=== PATIENT | male | born 1950 | race Caucasian/White ===

== ENCOUNTER 2023-08-07 16:00 | Inpatient (IN) ==
[2023-08-07] MEDS ORDERED: IOPAMIDOL 100 ML BOTTLE IV ONE (16:01)
[2023-08-07 16:18] LABS: POC Calcium, Ionized 1.25 (1.16-1.32); POC Creatinine 3.3 (0.6-1.2); POC Potassium 3.8 (3.3-5.1)
[2023-08-07 16:35] LABS: Basophils # (Auto) 0.03 K/mcL (0.00-0.30); Basophils % (Auto) 0.5 % (0.0-2.0); Eosinophils # (Auto) 0.07 K/mcL (0.00-0.70); Eosinophils % (Auto) 1.3 % (0.0-7.0); Hematocrit 28.6 % (40.1-51.0); Hemoglobin 9.3 g/dL (13.7-17.5); Lymphocytes # (Auto) 1.34 K/mcL (1.50-4.80); Lymphocytes % (Auto) 24.5 % (15.5-49.0); Mean Cell Volume 102.5 fL (80.0-100.0); Mean Corpuscular HGB Conc 32.5 g/dL (31.0-36.0); Mean Platelet Volume 9.4 fL (8.8-12.5); Monocytes # (Auto) 0.55 K/mcL (0.10-0.90); Monocytes % (Auto) 10.1 % (1.0-12.0); Neutrophils % (Auto) 62.3 % (38.0-78.0); Platelet Count 140 K/mcL (140-440); RBC 2.79 M/mcL (4.63-6.08); Red Cell Distribution Width 19.5 % (11.5-14.5); WBC 5.5 K/mcL (4.5-11.0)
[2023-08-07 16:45] LABS: POC INR 1.6 (0.8-1.2); POC Pro Time 18.7 (11.9-14.5)
[2023-08-07 16:55] LABS: ALT/SGPT 21 U/L (<40); AST/SGOT 27 U/L (<40); Albumin 3.6 gm/dL (3.2-5.2); Alkaline Phosphatase 111 U/L (39-117); Bilirubin,Direct 0.4 mg/dL (<0.3); Bilirubin,Total 1.1 mg/dL (0.1-1.0); Globulin 2.7 gm/dL (2.2-3.7)
[2023-08-07] MEDS: ASPIRIN 81 MG TAB.CHEW CHEWED ONE (18:58)
[2023-08-07] MEDS ORDERED: ACETAMINOPHEN 325 MG TABLET PO PRN (19:47)
[2023-08-07] MEDS ORDERED: ONDANSETRON 4 MG/2 ML VIAL IV PRN (19:47)
[2023-08-07] MEDS: DOCUSATE SODIUM 100 MG CAPSULE PO SCH (21:23)
[2023-08-07] MEDS: SENNOSIDES 1 TABLET PO SCH (21:23)
[2023-08-07] MEDS: 0.9 % SODIUM CHLORIDE 10 ML SYRINGE IV SCH (21:24)
[2023-08-07 21:39] LABS: Appearance,Urine Clear (Clear); Bilirubin,Urine Negative (Negative); Color,Urine Yellow; Culture Indicated,Urine No; Glucose,Urine (UA) Negative (Negative); Ketones,Urine Negative (Negative); Leukocyte Esterase,Urine Negative /uL (Negative); Nitrate,Urine Negative (Negative); PH,Urine 5.5 (5.0-9.0); Protein,Urine Negative (Negative); Specific Gravity,Urine 1.015 (1.000-1.035); Urine Blood Negative ery/mcL (Negative); Urobilinogen,Urine Normal
[2023-08-08 06:15] LABS: Basophils # (Auto) 0.04 K/mcL (0.00-0.30); Basophils % (Auto) 0.7 % (0.0-2.0); Eosinophils # (Auto) 0.06 K/mcL (0.00-0.70); Hematocrit 26.9 % (40.1-51.0); Hemoglobin 8.4 g/dL (13.7-17.5); Lymphocytes # (Auto) 0.93 K/mcL (1.50-4.80); Lymphocytes % (Auto) 15.9 % (15.5-49.0); Mean Cell Volume 103.9 fL (80.0-100.0); Mean Corpuscular HGB Conc 31.2 g/dL (31.0-36.0); Mean Platelet Volume 9.3 fL (8.8-12.5); Monocytes # (Auto) 0.48 K/mcL (0.10-0.90); Monocytes % (Auto) 8.2 % (1.0-12.0); Neutrophils % (Auto) 73.2 % (38.0-78.0); Platelet Count 123 K/mcL (140-440); RBC 2.59 M/mcL (4.63-6.08); Red Cell Distribution Width 19.9 % (11.5-14.5); WBC 5.8 K/mcL (4.5-11.0)
[2023-08-08 06:26] LABS: Blood Urea Nitrogen 41 mg/dL (8-23); Calcium 8.7 mg/dL (8.6-10.4); Carbon Dioxide 19 mmol/L (22-30); Chloride 96 mmol/L (96-108); Glomerular Filtration Rate 23; Glucose 86 mg/dL (70-105); HDL Cholesterol 98 mg/dL (>40); LDL Cholesterol,Calculated 26 mg/dL (<100); Non-HDL Cholesterol 33 mg/dL (<130); Triglycerides 36 mg/dL (<150)
[2023-08-08 06:46] LABS: Estimated Average Glucose(eAG) 85 mg/dL; Hemoglobin A1C 4.6 % Hgb (4.0-6.0)
[2023-08-08] MEDS: ATORVASTATIN 40 MG TABLET PO SCH (08:04)
[2023-08-08] MEDS: OMEPRAZOLE 20 MG CAPSULE PO SCH (08:05)
[2023-08-08] MEDS: AMIODARONE HCL 200 MG TABLET PO SCH (08:05)
[2023-08-08] MEDS: ASPIRIN 81 MG TAB.CHEW CHEWED SCH (08:06)
[2023-08-08] MEDS: ENOXAPARIN 30 MG/0.3 ML SYRINGE SQ SCH (08:40)
[2023-08-08] MEDS: 0.9 % SODIUM CHLORIDE 1,000 ML IV SCH (09:25)
[2023-08-08] MEDS: FERROUS SULFATE 325 MG TABLET PO SCH (10:22)
[2023-08-08] MEDS: TORSEMIDE 20 MG TABLET PO SCH (10:23)
[2023-08-08] MEDS: SPIRONOLACTONE 25 MG TABLET PO SCH (10:24)
[2023-08-09 12:06] LABS: Blood Urea Nitrogen 45 mg/dL (8-23); Carbon Dioxide 20 mmol/L (22-30); Chloride 94 mmol/L (96-108); Glomerular Filtration Rate 16; Glucose 102 mg/dL (70-105)
[2023-08-10 06:44] LABS: Basophils # (Auto) 0.02 K/mcL (0.00-0.30); Basophils % (Auto) 0.4 % (0.0-2.0); Eosinophils # (Auto) 0.04 K/mcL (0.00-0.70); Eosinophils % (Auto) 0.7 % (0.0-7.0); Hematocrit 25.1 % (40.1-51.0); Hemoglobin 8.2 g/dL (13.7-17.5); Lymphocytes # (Auto) 0.94 K/mcL (1.50-4.80); Lymphocytes % (Auto) 16.8 % (15.5-49.0); Mean Cell Volume 101.2 fL (80.0-100.0); Mean Corpuscular HGB Conc 32.7 g/dL (31.0-36.0); Mean Platelet Volume 9.2 fL (8.8-12.5); Monocytes # (Auto) 0.84 K/mcL (0.10-0.90); Neutrophils % (Auto) 66.4 % (38.0-78.0); Platelet Count 130 K/mcL (140-440); RBC 2.48 M/mcL (4.63-6.08); Red Cell Distribution Width 19.2 % (11.5-14.5); WBC 5.6 K/mcL (4.5-11.0)
[2023-08-10 07:03] LABS: Blood Urea Nitrogen 52 mg/dL (8-23); Calcium 8.6 mg/dL (8.6-10.4); Carbon Dioxide 19 mmol/L (22-30); Chloride 95 mmol/L (96-108); Glomerular Filtration Rate 13; Glucose 78 mg/dL (70-105)
[2023-08-10] MEDS: amLODIPine 10 MG TABLET PO SCH (09:47)
[2023-08-10] MEDS: APIXABAN 5 MG TABLET PO SCH (09:47)
[2023-08-10] MEDS: DOXAZOSIN 4 MG TABLET PO SCH (09:48)
== END 2023-08-10 11:30 | DRG 65 ==
LOC: ED 16:00 → ICU 19:32 → MEDSUR 08-08 17:45
PROVIDERS: ADMIT Internal Medicine; ATTEND Internal Medicine

== ENCOUNTER 2023-09-06 22:54 | Inpatient (IN) ==
[2023-09-06] MEDS: IPRATROPIUM/ALBUTEROL 3 ML AMPUL.NEB NEB ONE (23:24)
[2023-09-06] MEDS: methylPREDNISolone SOD SUCC 125 MG/2 ML VIAL IV ONE (23:29)
[2023-09-07 00:03] LABS: Basophils # (Auto) 0.05 K/mcL (0.00-0.30); Basophils % (Auto) 0.4 % (0.0-2.0); Eosinophils # (Auto) 0.01 K/mcL (0.00-0.70); Eosinophils % (Auto) 0.1 % (0.0-7.0); Hematocrit 28.8 % (40.1-51.0); Lymphocytes # (Auto) 0.38 K/mcL (1.50-4.80); Lymphocytes % (Auto) 2.8 % (15.5-49.0); Mean Cell Volume 100.3 fL (80.0-100.0); Mean Corpuscular HGB Conc 31.3 g/dL (31.0-36.0); Mean Platelet Volume 8.9 fL (8.8-12.5); Monocytes # (Auto) 0.93 K/mcL (0.10-0.90); Platelet Count 201 K/mcL (140-440); RBC 2.87 M/mcL (4.63-6.08); Red Cell Distribution Width 19.6 % (11.5-14.5); WBC 13.4 K/mcL (4.5-11.0)
[2023-09-07 00:24] LABS: ALT/SGPT 7 U/L (<40); AST/SGOT 20 U/L (<40); Albumin 3.4 gm/dL (3.2-5.2); Albumin/Globulin Ratio 1.2 (1.0-2.3); Alkaline Phosphatase 90 U/L (39-117); Bilirubin,Total 1.2 mg/dL (0.1-1.0); Blood Urea Nitrogen 34 mg/dL (8-23); Calcium 9.3 mg/dL (8.6-10.4); Carbon Dioxide 18 mmol/L (22-30); Chloride 97 mmol/L (96-108); Globulin 2.8 gm/dL (2.2-3.7); Glomerular Filtration Rate 24; Glucose 140 mg/dL (70-105)
[2023-09-07 00:33] LABS: INR 1.7 (0.9-1.1); Partial Thromboplastin Time 42.8 sec (20.0-37.0); Prothrombin Time 20.9 sec (11.9-14.5)
[2023-09-07] MEDS: FUROSEMIDE 40 MG/4 ML VIAL IV ONE (02:28)
[2023-09-07] MEDS: PIPERACILLIN SODIUM/TAZOBACTAM 3.375 GM in DEXTROSE 5% IN WATER 50 ML IV ONE (02:28)
[2023-09-07] MEDS ORDERED: hydrALAZINE 20 MG/ML VIAL IV PRN (04:03)
[2023-09-07] MEDS ORDERED: ONDANSETRON 4 MG/2 ML VIAL IV PRN (04:03)
[2023-09-07] MEDS ORDERED: ACETAMINOPHEN 325 MG TABLET PO PRN (04:03)
[2023-09-07] MEDS ORDERED: VANCOMYCIN PER PHARMACY IV SCH (04:03)
[2023-09-07] MEDS ORDERED: LACTULOSE 20 GM/30 ML ORAL.SOL PO PRN (04:03)
[2023-09-07] MEDS ORDERED: SENNOSIDES 1 TABLET PO PRN (04:03)
[2023-09-07] MEDS ORDERED: guaiFENesin/DEXTROMETHORPHAN 5ML UD CUP PO PRN (04:03)
[2023-09-07 04:45] LABS: Basophils # (Auto) 0.01 K/mcL (0.00-0.30); Basophils % (Auto) 0.1 % (0.0-2.0); Eosinophils # (Auto) 0 K/mcL (0.00-0.70); Eosinophils % (Auto) 0 % (0.0-7.0); Hematocrit 29.4 % (40.1-51.0); Hemoglobin 9.3 g/dL (13.7-17.5); Lymphocytes % (Auto) 2.7 % (15.5-49.0); Mean Corpuscular HGB Conc 31.6 g/dL (31.0-36.0); Mean Platelet Volume 8.9 fL (8.8-12.5); Monocytes # (Auto) 0.14 K/mcL (0.10-0.90); Monocytes % (Auto) 1.9 % (1.0-12.0); Neutrophils % (Auto) 94.5 % (38.0-78.0); Platelet Count 189 K/mcL (140-440); RBC 2.94 M/mcL (4.63-6.08); Red Cell Distribution Width 19.6 % (11.5-14.5); WBC 7.4 K/mcL (4.5-11.0)
[2023-09-07 05:02] LABS: ALT/SGPT 7 U/L (<40); AST/SGOT 22 U/L (<40); Albumin 3.5 gm/dL (3.2-5.2); Albumin/Globulin Ratio 1.2 (1.0-2.3); Alkaline Phosphatase 89 U/L (39-117); Bilirubin,Total 1.5 mg/dL (0.1-1.0); Blood Urea Nitrogen 35 mg/dL (8-23); Calcium 9.7 mg/dL (8.6-10.4); Carbon Dioxide 20 mmol/L (22-30); Chloride 97 mmol/L (96-108); Glomerular Filtration Rate 24; Glucose 160 mg/dL (70-105)
[2023-09-07] MEDS: VANCOMYCIN 1,000 MG in 0.9 % SODIUM CHLORIDE 250 ML IV SCH (05:21)
[2023-09-07] MEDS: IPRATROPIUM/ALBUTEROL 3 ML AMPUL.NEB NEB PRN (07:10)
[2023-09-07] MEDS: FERROUS SULFATE 325 MG TABLET PO SCH (08:55)
[2023-09-07] MEDS: DOCUSATE SODIUM 100 MG CAPSULE PO SCH (08:55)
[2023-09-07] MEDS: ATORVASTATIN 40 MG TABLET PO SCH (08:55)
[2023-09-07] MEDS: AMIODARONE HCL 200 MG TABLET PO SCH (08:55)
[2023-09-07] MEDS: OMEPRAZOLE 20 MG CAPSULE PO SCH (08:55)
[2023-09-07] MEDS: VITAMIN B COMPLEX 1 CAPSULE PO SCH (08:55)
[2023-09-07] MEDS: APIXABAN 5 MG TABLET PO SCH (08:55)
[2023-09-07] MEDS: LISINOPRIL 5 MG TABLET PO SCH (08:55)
[2023-09-07] MEDS: SPIRONOLACTONE 25 MG TABLET PO SCH (08:55)
[2023-09-07] MEDS: PIPERACILLIN SODIUM/TAZOBACTAM 3.375 GM in DEXTROSE 5% IN WATER 100 ML IV SCH (08:56)
[2023-09-07] MEDS ORDERED: DOXAZOSIN 2 MG PO SCH (09:00)
[2023-09-07] MEDS: FUROSEMIDE 40 MG/4 ML VIAL IV SCH (09:00)
[2023-09-07] MEDS ORDERED: amLODIPine 10 MG TABLET PO SCH (09:00)
[2023-09-07] MEDS ORDERED: ACETAMINOPHEN (PP) 325MG TABLET (#50) PO PRN (09:01)
[2023-09-07] MEDS ORDERED: FLEETS ADULT 1 DOSE ENEMA PR PRN (09:01)
[2023-09-07] MEDS: 0.9 % SODIUM CHLORIDE 10 ML SYRINGE IV SCH (09:01)
[2023-09-07] MEDS ORDERED: BISACODYL 10 MG SUPP.RECT PR PRN (09:01)
[2023-09-07] MEDS ORDERED: oxyCODONE IR 5 MG TABLET PO PRN (09:01)
[2023-09-07] MEDS ORDERED: MAGNESIUM HYDROXIDE 30 ML ORAL.SUSP PO PRN (09:01)
[2023-09-07] MEDS: TADALAFIL 10 MG PO SCH (09:01)
[2023-09-07] MEDS: VANCOMYCIN 500 MG in 0.9 % SODIUM CHLORIDE 100 ML IV ONE (09:01)
[2023-09-07] MEDS ORDERED: valACYclovir 500 MG TABLET PO PRN (09:19)
[2023-09-07] MEDS: MAGNESIUM OXIDE 400 MG TABLET PO SCH (10:42)
[2023-09-07] MEDS: MULTIVIT,THER IRON,CA,FA & MIN 1 TABLET PO SCH (10:42)
[2023-09-07] MEDS: VITAMIN D3 25 MCG TABLET PO SCH (10:42)
[2023-09-07] MEDS: POLYETHYLENE GLYCOL 3350 17 GM PACKET PO SCH (10:42)
[2023-09-07] MEDS: ASPIRIN 81 MG TAB.CHEW PO SCH (10:42)
[2023-09-07] MEDS: METOLAZONE 2.5 MG TABLET PO SCH (15:40)
[2023-09-07] MEDS: SODIUM CHLORIDE 1 GM TABLET PO SCH (20:28)
[2023-09-08 05:22] LABS: Basophils # (Auto) 0.01 K/mcL (0.00-0.30); Basophils % (Auto) 0.2 % (0.0-2.0); Eosinophils # (Auto) 0 K/mcL (0.00-0.70); Eosinophils % (Auto) 0 % (0.0-7.0); Hematocrit 26.5 % (40.1-51.0); Hemoglobin 8.4 g/dL (13.7-17.5); Lymphocytes # (Auto) 0.73 K/mcL (1.50-4.80); Lymphocytes % (Auto) 12.9 % (15.5-49.0); Mean Cell Volume 98.9 fL (80.0-100.0); Mean Corpuscular HGB Conc 31.7 g/dL (31.0-36.0); Mean Platelet Volume 8.9 fL (8.8-12.5); Monocytes # (Auto) 0.71 K/mcL (0.10-0.90); Monocytes % (Auto) 12.5 % (1.0-12.0); Neutrophils % (Auto) 73.7 % (38.0-78.0); Platelet Count 174 K/mcL (140-440); RBC 2.68 M/mcL (4.63-6.08); Red Cell Distribution Width 19.4 % (11.5-14.5); WBC 5.7 K/mcL (4.5-11.0)
[2023-09-08 06:16] LABS: Phosphorous 4.1 mg/dL (2.5-4.5)
[2023-09-08 06:19] LABS: ALT/SGPT 7 U/L (<40); AST/SGOT 21 U/L (<40); Albumin 3.3 gm/dL (3.2-5.2); Albumin/Globulin Ratio 1.2 (1.0-2.3); Alkaline Phosphatase 73 U/L (39-117); Bilirubin,Total 0.8 mg/dL (0.1-1.0); Blood Urea Nitrogen 47 mg/dL (8-23); Calcium 9.7 mg/dL (8.6-10.4); Carbon Dioxide 23 mmol/L (22-30); Chloride 96 mmol/L (96-108); Globulin 2.7 gm/dL (2.2-3.7); Glomerular Filtration Rate 22; Glucose 133 mg/dL (70-105)
[2023-09-08] MEDS ORDERED: PANTOPRAZOLE 40 MG TABLET PO SCH (09:00)
[2023-09-08] MEDS ORDERED: VANCOMYCIN 1,500 MG in 0.9 % SODIUM CHLORIDE 500 ML IV SCH (10:00)
[2023-09-08] MEDS: THIAMINE 100 MG TABLET PO SCH (10:03)
[2023-09-08] MEDS: FOLIC ACID 1 MG TABLET PO SCH (10:03)
[2023-09-08] MEDS: TORSEMIDE 20 MG TABLET PO SCH (10:04)
[2023-09-09 06:19] LABS: Basophils # (Auto) 0.04 K/mcL (0.00-0.30); Basophils % (Auto) 0.5 % (0.0-2.0); Eosinophils # (Auto) 0.09 K/mcL (0.00-0.70); Eosinophils % (Auto) 1.1 % (0.0-7.0); Hematocrit 27.6 % (40.1-51.0); Hemoglobin 8.7 g/dL (13.7-17.5); Lymphocytes # (Auto) 1.76 K/mcL (1.50-4.80); Mean Cell Volume 99.6 fL (80.0-100.0); Mean Corpuscular HGB Conc 31.5 g/dL (31.0-36.0); Mean Platelet Volume 8.5 fL (8.8-12.5); Monocytes # (Auto) 0.86 K/mcL (0.10-0.90); Monocytes % (Auto) 10.3 % (1.0-12.0); Neutrophils % (Auto) 66.5 % (38.0-78.0); Platelet Count 193 K/mcL (140-440); RBC 2.77 M/mcL (4.63-6.08); Red Cell Distribution Width 19.4 % (11.5-14.5); WBC 8.4 K/mcL (4.5-11.0)
[2023-09-09 06:37] LABS: ALT/SGPT 13 U/L (<40); AST/SGOT 21 U/L (<40); Albumin 3.2 gm/dL (3.2-5.2); Albumin/Globulin Ratio 1.3 (1.0-2.3); Alkaline Phosphatase 69 U/L (39-117); Bilirubin,Total 0.6 mg/dL (0.1-1.0); Blood Urea Nitrogen 47 mg/dL (8-23); Calcium 9.7 mg/dL (8.6-10.4); Carbon Dioxide 24 mmol/L (22-30); Chloride 98 mmol/L (96-108); Globulin 2.5 gm/dL (2.2-3.7); Glomerular Filtration Rate 23; Glucose 89 mg/dL (70-105); Phosphorous 3.2 mg/dL (2.5-4.5)
[2023-09-21] MEDS ORDERED: [UNRECOGNIZED DRUG - OTHER] SUB-Q SCH (09:00)
[2023-09-21] MEDS ORDERED: EPOETIN ALFA EPBX 40000 UNIT/ML SUB-Q SCH (09:00)
== END 2023-09-09 13:40 | DRG 193 ==
LOC: ED 22:54 → ICU 09-07 03:49
PROVIDERS: ADMIT Internal Medicine; ATTEND Internal Medicine

== ENCOUNTER 2024-08-16 18:42 | Inpatient (IN) ==
[2024-08-16 19:24] LABS: Basophils # (Auto) 0.03 K/mcL (0.00-0.30); Basophils % (Auto) 0.2 % (0.0-2.0); Eosinophils # (Auto) 0 K/mcL (0.00-0.70); Eosinophils % (Auto) 0 % (0.0-7.0); Hemoglobin 12.8 g/dL (13.7-17.5); Lymphocytes # (Auto) 0.58 K/mcL (1.50-4.80); Lymphocytes % (Auto) 3.7 % (15.5-49.0); Mean Corpuscular HGB Conc 32.8 g/dL (31.0-36.0); Mean Platelet Volume 10.3 fL (8.8-12.5); Monocytes # (Auto) 1.28 K/mcL (0.10-0.90); Monocytes % (Auto) 8.2 % (1.0-12.0); Neutrophils % (Auto) 87.4 % (38.0-78.0); Platelet Count 120 K/mcL (140-440); RBC 3.61 M/mcL (4.63-6.08); Red Cell Distribution Width 14.8 % (11.5-14.5); WBC 15.6 K/mcL (4.5-11.0)
[2024-08-16 19:33] LABS: INR 1.1 (0.9-1.1); Prothrombin Time 15.1 sec (11.9-14.5)
[2024-08-16 19:40] LABS: Creatine Kinase 182 U/L (24-195)
[2024-08-16 19:41] LABS: ALT/SGPT 20 U/L (<40); AST/SGOT 41 U/L (<40); Albumin 3.8 gm/dL (3.2-5.2); Albumin/Globulin Ratio 1.4 (1.0-2.3); Alkaline Phosphatase 113 U/L (39-117); Bilirubin,Total 3.1 mg/dL (0.1-1.0); Blood Urea Nitrogen 35 mg/dL (8-23); Calcium 9.6 mg/dL (8.6-10.4); Carbon Dioxide 16 mmol/L (22-30); Chloride 94 mmol/L (96-108); Globulin 2.8 gm/dL (2.2-3.7); Glomerular Filtration Rate 27; Glucose 161 mg/dL (70-105); Potassium 4.6 mmol/L (3.3-5.1); Sodium 136 mmol/L (133-145)
[2024-08-16] MEDS: 0.9 % SODIUM CHLORIDE 500 ML IV ONE (20:21)
[2024-08-16] MEDS: VANCOMYCIN 1,500 MG in 0.9 % SODIUM CHLORIDE 500 ML IV ONE (20:21)
[2024-08-16] MEDS: CEFEPIME 2 GM VIAL IV ONE (20:29)
[2024-08-16 21:38] LABS: Appearance,Urine Clear (Clear); Bacteria,Urine Rare /hpf (0); Bilirubin,Urine Small mg/dL (Negative); Color,Urine Yellow; Glucose,Urine (UA) 500 mg/dL (Negative); Ketones,Urine 15 mg/dL (Negative); Leukocyte Esterase,Urine Negative /uL (Negative); Nitrate,Urine Negative (Negative); Protein,Urine >=300 mg/dL (Negative); Specific Gravity,Urine 1.025 (1.000-1.035); Urine Blood Moderate ery/mcL (Negative); Urine RBC 9 /hpf (0-3); Urine Squamous Epithelial Cell 2 /hpf (0-4); Urine WBC 4 /hpf (0-4); Urobilinogen,Urine Normal
[2024-08-16] MEDS: LABETALOL HCL 20 MG/4 ML VIAL IV ONE ×3 (22:17→23:14)
[2024-08-17] MEDS ORDERED: ONDANSETRON 4 MG/2 ML VIAL IV PRN (01:24)
[2024-08-17] MEDS ORDERED: DEXTROSE 50% 50 ML VIAL IV PRN (01:24)
[2024-08-17] MEDS ORDERED: IPRATROPIUM/ALBUTEROL 3 ML AMPUL.NEB NEB PRN (01:24)
[2024-08-17] MEDS ORDERED: POTASSIUM CHLORIDE 20 MEQ TABLET PO PRN (01:24)
[2024-08-17] MEDS ORDERED: DEXTROSE 31 GM ORAL.SUSP PO PRN (01:24)
[2024-08-17] MEDS ORDERED: chlordiazePOXIDE 25 MG CAPSULE PO PRN (01:24)
[2024-08-17] MEDS ORDERED: SENNOSIDES 1 TABLET PO PRN (01:24)
[2024-08-17] MEDS ORDERED: METOPROLOL TARTRATE 5 MG/5 ML VIAL IV PRN (01:24)
[2024-08-17] MEDS ORDERED: LORazepam 2 MG/ML VIAL IV PRN (01:24)
[2024-08-17] MEDS ORDERED: POLYETHYLENE GLYCOL 3350 17 GM PACKET PO PRN (01:24)
[2024-08-17] MEDS ORDERED: ACETAMINOPHEN 325 MG TABLET PO PRN (01:24)
[2024-08-17] MEDS ORDERED: METOCLOPRAMIDE 10 MG/2 ML VIAL IV PRN (01:24)
[2024-08-17] MEDS ORDERED: POTASSIUM CHLORIDE 40 MEQ in DEXTROSE 5% IN WATER 500 ML IV PRN (01:24)
[2024-08-17] MEDS: cefTRIAXone 1 GM VIAL IV SCH (01:50)
[2024-08-17] MEDS: THIAMINE 100 MG TABLET PO SCH (01:50)
[2024-08-17] MEDS: FOLIC ACID 1 MG TABLET PO SCH (01:50)
[2024-08-17] MEDS: SODIUM BICARBONATE 650 MG TABLET PO SCH (01:51)
[2024-08-17] MEDS: cefTRIAXone 1 GM VIAL ONE (01:52)
[2024-08-17] MEDS: AZITHROMYCIN 500 MG in DEXTROSE 5% IN WATER 250 ML IV SCH (01:52)
[2024-08-17] MEDS: ENALAPRILAT 1.25 MG/ML VIAL IV ONE (04:38)
[2024-08-17] MEDS: ENALAPRILAT 1.25 MG/ML VIAL IV PRN (04:38)
[2024-08-17 06:07] LABS: Hematocrit 34.1 % (40.1-51.0); Hemoglobin 11.2 g/dL (13.7-17.5); Mean Cell Volume 106.9 fL (80.0-100.0); Mean Corpuscular HGB Conc 32.8 g/dL (31.0-36.0); Mean Platelet Volume 11.1 fL (8.8-12.5); Platelet Count 99 K/mcL (140-440); RBC 3.19 M/mcL (4.63-6.08); Red Cell Distribution Width 14.5 % (11.5-14.5)
[2024-08-17 06:28] LABS: ALT/SGPT 36 U/L (<40); AST/SGOT 73 U/L (<40); Albumin 3.4 gm/dL (3.2-5.2); Albumin/Globulin Ratio 1.4 (1.0-2.3); Alkaline Phosphatase 90 U/L (39-117); Bilirubin,Direct 0.9 mg/dL (<0.3); Bilirubin,Total 2.2 mg/dL (0.1-1.0); Blood Urea Nitrogen 37 mg/dL (8-23); Calcium 8.9 mg/dL (8.6-10.4); Carbon Dioxide 21 mmol/L (22-30); Chloride 97 mmol/L (96-108); Globulin 2.4 gm/dL (2.2-3.7); Glomerular Filtration Rate 28; Glucose 110 mg/dL (70-105); Lactate Dehydrogenase 353 U/L (135-225); Phosphorous 3.9 mg/dL (2.5-4.5); Potassium 3.7 mmol/L (3.3-5.1); Sodium 136 mmol/L (133-145); Triglycerides 87 mg/dL (<150)
[2024-08-17 06:41] LABS: Lymphocytes % 9 % (15-49); Macrocytosis 1+ (None Seen); Monocytes % (Manual) 8 % (1-12); Platelet Estimate DECREASED (Normal); RBC Morphology ABNORMAL (Normal); Segmented Neutrophils % 83 % (38-78)
[2024-08-17] MEDS: INSULIN LISPRO 1 UNIT/0.01 ML UNIT SQ SCH (07:57)
[2024-08-17] MEDS: CARVEDILOL 12.5 MG TABLET PO SCH (08:32)
[2024-08-17] MEDS: ENOXAPARIN 30 MG/0.3 ML SYRINGE SQ SCH (08:33)
[2024-08-17] MEDS: MULTIVIT,THER IRON,CA,FA & MIN 1 TABLET PO SCH (08:33)
[2024-08-17] MEDS: ATORVASTATIN 40 MG TABLET PO SCH (08:33)
[2024-08-17] MEDS: OMEPRAZOLE 20 MG CAPSULE PO SCH (08:34)
[2024-08-17] MEDS: ASPIRIN 81 MG TAB.CHEW PO SCH (08:34)
[2024-08-17] MEDS: LISINOPRIL 20 MG TABLET PO SCH (08:34)
[2024-08-17] MEDS: DOCUSATE SODIUM 100 MG CAPSULE PO SCH (08:34)
[2024-08-17] MEDS: MAGNESIUM SULFATE 2 GM/50 ML BAG IV PRN (13:44)
[2024-08-17] MEDS: ETHYL ALCOHOL 30 ML ORAL.SOL PO SCH (13:44)
[2024-08-17] MEDS: ETHYL ALCOHOL 30 ML ORAL.SOL PO PRN (16:54)
[2024-08-17] MEDS: AZITHROMYCIN 500 MG in 0.9 % SODIUM CHLORIDE 250 ML IV SCH (18:02)
[2024-08-18] MEDS: LABETALOL HCL 20 MG/4 ML VIAL IV PRN (05:43)
[2024-08-18 06:21] LABS: ALT/SGPT 73 U/L (<40); AST/SGOT 86 U/L (<40); Albumin 3.4 gm/dL (3.2-5.2); Albumin/Globulin Ratio 1.4 (1.0-2.3); Alkaline Phosphatase 92 U/L (39-117); Bilirubin,Direct 0.5 mg/dL (<0.3); Blood Urea Nitrogen 37 mg/dL (8-23); Calcium 9.2 mg/dL (8.6-10.4); Carbon Dioxide 23 mmol/L (22-30); Chloride 98 mmol/L (96-108); Globulin 2.4 gm/dL (2.2-3.7); Glomerular Filtration Rate 31; Glucose 103 mg/dL (70-105); Lactate Dehydrogenase 369 U/L (135-225); Phosphorous 1.6 mg/dL (2.5-4.5); Sodium 134 mmol/L (133-145); Triglycerides 109 mg/dL (<150); Uric Acid 11.6 mg/dL (2.5-8.0)
[2024-08-18] MEDS: NEUTRA PHOS 1 PACKET PO SCH (08:57)
[2024-08-18] MEDS: POTASSIUM CHLORIDE 20 MEQ TABLET PO PRN (08:58)
[2024-08-18] MEDS: metroNIDAZOLE 500 MG/100 ML BAG IV SCH (11:57)
[2024-08-18] MEDS: TORSEMIDE 20 MG TABLET PO SCH (11:57)
[2024-08-18] MEDS: SPIRONOLACTONE 25 MG TABLET PO SCH (11:57)
[2024-08-18 16:05] LABS: pH,Body Fluid 7.61
[2024-08-18 16:20] LABS: Glucose,Pleural Fluid 138 mg/dL; LDH,Pleural Fluid 85 U/L (<122)
[2024-08-18 16:38] LABS: Appearance,Pleural Fluid Clear; Color,Pleural Fluid Yellow; Lymphocytes,Pleural Fluid 44 %; Mesothelial,Pleural Fluid 1 %; Monocytes,Pleural Fluid 10 %; Neutrophils,Pleural Fluid 45 %; Nucleated Cells,Pleural Fld 120 /cumm; RBC,Pleural Fluid <50,000 /cumm
[2024-08-19 06:34] LABS: Basophils # (Auto) 0.05 K/mcL (0.00-0.30); Basophils % (Auto) 0.8 % (0.0-2.0); Eosinophils # (Auto) 0.11 K/mcL (0.00-0.70); Eosinophils % (Auto) 1.8 % (0.0-7.0); Hematocrit 32.9 % (40.1-51.0); Hemoglobin 10.8 g/dL (13.7-17.5); Lymphocytes # (Auto) 1.81 K/mcL (1.50-4.80); Lymphocytes % (Auto) 29.5 % (15.5-49.0); Mean Cell Volume 107.5 fL (80.0-100.0); Mean Corpuscular HGB Conc 32.8 g/dL (31.0-36.0); Mean Platelet Volume 10.7 fL (8.8-12.5); Monocytes % (Auto) 11.4 % (1.0-12.0); Neutrophils % (Auto) 56.2 % (38.0-78.0); Platelet Count 103 K/mcL (140-440); RBC 3.06 M/mcL (4.63-6.08); Red Cell Distribution Width 14.8 % (11.5-14.5); WBC 6.1 K/mcL (4.5-11.0)
[2024-08-19 06:56] LABS: ALT/SGPT 76 U/L (<40); AST/SGOT 65 U/L (<40); Albumin 3.2 gm/dL (3.2-5.2); Albumin/Globulin Ratio 1.4 (1.0-2.3); Alkaline Phosphatase 89 U/L (39-117); Bilirubin,Direct 0.3 mg/dL (<0.3); Bilirubin,Total 0.6 mg/dL (0.1-1.0); Blood Urea Nitrogen 33 mg/dL (8-23); Carbon Dioxide 23 mmol/L (22-30); Chloride 100 mmol/L (96-108); Globulin 2.3 gm/dL (2.2-3.7); Glomerular Filtration Rate 33; Glucose 103 mg/dL (70-105); Lactate Dehydrogenase 316 U/L (135-225); Phosphorous 1.9 mg/dL (2.5-4.5); Potassium 3.6 mmol/L (3.3-5.1); Sodium 135 mmol/L (133-145); Triglycerides 82 mg/dL (<150); Uric Acid 11.1 mg/dL (2.5-8.0)
[2024-08-19] MEDS: 0.9 % SODIUM CHLORIDE 10 ML SYRINGE IV SCH (19:38)
[2024-08-19] MEDS: HYDROcodone/APAP 10/325MG TABLET PO PRN (23:15)
[2024-08-20] MEDS: CARVEDILOL 12.5 MG TABLET PO SCH (10:14)
[2024-08-22 07:52] VITALS: TEMP 97.9; O2SAT 97
== END 2024-08-22 13:47 | DRG 871 ==
LOC: ED 18:42 → ICU 08-17 01:23 → MEDSUR 08-20 10:44
PROVIDERS: ADMIT Internal Medicine; ATTEND Internal Medicine

== ENCOUNTER 2024-10-09 08:42 | Inpatient (IN) ==
[2024-10-09 09:11] LABS: Basophils # (Auto) 0.06 K/mcL (0.00-0.30); Basophils % (Auto) 0.8 % (0.0-2.0); Eosinophils # (Auto) 0.08 K/mcL (0.00-0.70); Hematocrit 37.3 % (40.1-51.0); Hemoglobin 12.5 g/dL (13.7-17.5); Lymphocytes % (Auto) 21.6 % (15.5-49.0); Mean Cell Volume 100.5 fL (80.0-100.0); Mean Corpuscular HGB Conc 33.5 g/dL (31.0-36.0); Mean Platelet Volume 10.1 fL (8.8-12.5); Monocytes # (Auto) 0.69 K/mcL (0.10-0.90); Monocytes % (Auto) 8.8 % (1.0-12.0); Neutrophils % (Auto) 67.4 % (38.0-78.0); Platelet Count 148 K/mcL (140-440); RBC 3.71 M/mcL (4.63-6.08); WBC 7.9 K/mcL (4.5-11.0)
[2024-10-09 09:50] LABS: ALT/SGPT 15 U/L (<40); AST/SGOT 23 U/L (<40); Albumin 4.1 gm/dL (3.2-5.2); Albumin/Globulin Ratio 1.6 (1.0-2.3); Alkaline Phosphatase 104 U/L (39-117); Bilirubin,Total 2.4 mg/dL (0.1-1.0); Blood Urea Nitrogen 28 mg/dL (8-23); Carbon Dioxide 16 mmol/L (22-30); Chloride 102 mmol/L (96-108); Globulin 2.6 gm/dL (2.2-3.7); Glomerular Filtration Rate 38; Glucose 106 mg/dL (70-105); Sodium 137 mmol/L (133-145)
[2024-10-09 09:51] LABS: Thyroid Stimulating Hormone 1.41 uIU/mL (0.27-5.01)
[2024-10-09 10:37] LABS: Appearance,Urine Clear (Clear); Bilirubin,Urine Small mg/dL (Negative); Color,Urine Yellow; Glucose,Urine (UA) Negative (Negative); Ketones,Urine 15 mg/dL (Negative); Leukocyte Esterase,Urine Negative /uL (Negative); Nitrate,Urine Negative (Negative); Protein,Urine >=300 mg/dL (Negative); Specific Gravity,Urine 1.025 (1.000-1.035); Urine Blood Moderate ery/mcL (Negative); Urine Hyaline Cast 14 /lph (0-2); Urine RBC 3 /hpf (0-3); Urine Squamous Epithelial Cell 0 /hpf (0-4); Urine WBC 0 /hpf (0-4); Urobilinogen,Urine Normal
[2024-10-09] MEDS: FUROSEMIDE 100 MG/10 ML VIAL IV ONE (10:48)
[2024-10-09] MEDS: CARVEDILOL 12.5 MG TABLET PO SCH ×2 (12:17→20:32)
[2024-10-09 12:22] LABS: Free T4 (Free Thyroxine) 1.77 ng/dL (0.93-1.70)
[2024-10-09] MEDS: MAGNESIUM SULFATE 2 GM/50 ML BAG IV ONE (12:35)
[2024-10-09 15:54] LABS: Uric Acid 9.2 mg/dL (2.5-8.0)
[2024-10-09] MEDS ORDERED: IPRATROPIUM/ALBUTEROL 3 ML AMPUL.NEB NEB PRN (16:13)
[2024-10-09] MEDS ORDERED: ONDANSETRON 4 MG/2 ML VIAL IV PRN (16:13)
[2024-10-09] MEDS ORDERED: ACETAMINOPHEN 325 MG TABLET PO PRN (16:13)
[2024-10-09] MEDS ORDERED: hydrALAZINE 20 MG/ML VIAL IV PRN (16:13)
[2024-10-09] MEDS ORDERED: POTASSIUM CHLORIDE 40 MEQ in DEXTROSE 5% IN WATER 500 ML IV PRN (16:13)
[2024-10-09] MEDS ORDERED: POTASSIUM CHLORIDE 20 MEQ TABLET PO PRN (16:13)
[2024-10-09] MEDS ORDERED: SENNOSIDES 1 TABLET PO PRN (16:13)
[2024-10-09] MEDS ORDERED: POLYETHYLENE GLYCOL 3350 17 GM PACKET PO PRN (16:13)
[2024-10-09] MEDS ORDERED: METOCLOPRAMIDE 10 MG/2 ML VIAL IV PRN (16:13)
[2024-10-09] MEDS ORDERED: HYDROcodone/APAP 10/325MG TABLET PO PRN (16:34)
[2024-10-09] MEDS: FUROSEMIDE 250 MG in 0.9 % SODIUM CHLORIDE 225 ML IV SCH (16:38)
[2024-10-09] MEDS: NITROGLYCERIN 5 MG (0.2 MG/HR) PATCH TOPICAL SCH (17:03)
[2024-10-09] MEDS: 0.9 % SODIUM CHLORIDE 250 ML IV SCH (17:04)
[2024-10-09] MEDS: ATORVASTATIN 40 MG TABLET PO SCH (20:32)
[2024-10-09] MEDS: ETHYL ALCOHOL 30 ML ORAL.SOL PO SCH (20:33)
[2024-10-09] MEDS: DOCUSATE SODIUM 100 MG CAPSULE PO SCH (20:33)
[2024-10-10 05:54] LABS: Basophils # (Auto) 0.05 K/mcL (0.00-0.30); Basophils % (Auto) 0.7 % (0.0-2.0); Eosinophils # (Auto) 0.14 K/mcL (0.00-0.70); Eosinophils % (Auto) 1.8 % (0.0-7.0); Hemoglobin 11.3 g/dL (13.7-17.5); Lymphocytes % (Auto) 19.7 % (15.5-49.0); Mean Cell Volume 101.8 fL (80.0-100.0); Mean Corpuscular HGB Conc 33.2 g/dL (31.0-36.0); Mean Platelet Volume 10.4 fL (8.8-12.5); Monocytes # (Auto) 0.75 K/mcL (0.10-0.90); Monocytes % (Auto) 9.9 % (1.0-12.0); Neutrophils % (Auto) 67.5 % (38.0-78.0); Platelet Count 137 K/mcL (140-440); RBC 3.34 M/mcL (4.63-6.08); Red Cell Distribution Width 14.4 % (11.5-14.5); WBC 7.6 K/mcL (4.5-11.0)
[2024-10-10 06:36] LABS: ALT/SGPT 12 U/L (<40); AST/SGOT 19 U/L (<40); Albumin 3.3 gm/dL (3.2-5.2); Albumin/Globulin Ratio 1.2 (1.0-2.3); Alkaline Phosphatase 91 U/L (39-117); Bilirubin,Direct 0.9 mg/dL (<0.3); Bilirubin,Total 2.5 mg/dL (0.1-1.0); Blood Urea Nitrogen 30 mg/dL (8-23); Calcium 9.7 mg/dL (8.6-10.4); Carbon Dioxide 22 mmol/L (22-30); Chloride 101 mmol/L (96-108); Globulin 2.7 gm/dL (2.2-3.7); Glomerular Filtration Rate 33; Glucose 90 mg/dL (70-105); Lactate Dehydrogenase 210 U/L (135-225); Phosphorous 2.6 mg/dL (2.5-4.5); Potassium 3.7 mmol/L (3.3-5.1); Sodium 135 mmol/L (133-145); Triglycerides 84 mg/dL (<150); Uric Acid 9.7 mg/dL (2.5-8.0)
[2024-10-10] MEDS: OMEPRAZOLE 20 MG CAPSULE PO SCH (07:40)
[2024-10-10] MEDS: SPIRONOLACTONE 25 MG TABLET PO SCH (08:37)
[2024-10-10] MEDS: LISINOPRIL 20 MG TABLET PO SCH (08:38)
[2024-10-10] MEDS: ASPIRIN 81 MG TAB.CHEW PO SCH (08:38)
[2024-10-10] MEDS: ENOXAPARIN 40 MG/0.4 ML SYRINGE SQ SCH (08:39)
[2024-10-10] MEDS: 0.9 % SODIUM CHLORIDE 250 ML IV SCH (08:39)
[2024-10-10] MEDS ORDERED: cloNIDine HCL 0.1 MG TABLET PO PRN (09:20)
[2024-10-10] MEDS: METOLAZONE 2.5 MG TABLET PO ONE (10:04)
[2024-10-10] MEDS: ETHYL ALCOHOL 30 ML ORAL.SOL PO PRN (17:35)
[2024-10-11 06:52] LABS: ALT/SGPT 11 U/L (<40); AST/SGOT 15 U/L (<40); Albumin 3.2 gm/dL (3.2-5.2); Albumin/Globulin Ratio 1.3 (1.0-2.3); Alkaline Phosphatase 91 U/L (39-117); Bilirubin,Direct 0.7 mg/dL (<0.3); Bilirubin,Total 1.6 mg/dL (0.1-1.0); Blood Urea Nitrogen 34 mg/dL (8-23); Calcium 9.4 mg/dL (8.6-10.4); Carbon Dioxide 24 mmol/L (22-30); Chloride 96 mmol/L (96-108); Globulin 2.4 gm/dL (2.2-3.7); Glomerular Filtration Rate 30; Glucose 108 mg/dL (70-105); Lactate Dehydrogenase 185 U/L (135-225); Phosphorous 2.7 mg/dL (2.5-4.5); Potassium 3.2 mmol/L (3.3-5.1); Sodium 131 mmol/L (133-145); Triglycerides 94 mg/dL (<150); Uric Acid 10.4 mg/dL (2.5-8.0)
[2024-10-11] MEDS: MAGNESIUM SULFATE 2 GM/50 ML BAG IV PRN (07:00)
[2024-10-11] MEDS: POTASSIUM CHLORIDE 20 MEQ TABLET PO PRN (07:02)
[2024-10-11] MEDS: 0.9 % SODIUM CHLORIDE 10 ML SYRINGE IV SCH (20:01)
[2024-10-12 06:20] LABS: Uric Acid 10.3 mg/dL (2.5-8.0)
[2024-10-12 06:47] LABS: Blood Urea Nitrogen 38 mg/dL (8-23); Calcium 9.5 mg/dL (8.6-10.4); Carbon Dioxide 22 mmol/L (22-30); Chloride 95 mmol/L (96-108); Glomerular Filtration Rate 30; Glucose 123 mg/dL (70-105); Potassium 3.7 mmol/L (3.3-5.1); Sodium 130 mmol/L (133-145)
[2024-10-12] MEDS: SPIRONOLACTONE 25 MG TABLET PO SCH (08:15)
[2024-10-12 11:59] VITALS: TEMP 97.5; O2SAT 97
== END 2024-10-12 12:23 | DRG 291 ==
LOC: ED 08:42 → ICU 16:00 → MEDSUR 10-11 16:05
PROVIDERS: ADMIT Internal Medicine; ATTEND Internal Medicine